=== PATIENT | female | born 1995 | race Caucasian/White ===

== ENCOUNTER 2017-10-14 22:35 | Emergency (ER) | payer BC ==
[2017-10-14] MEDS ORDERED: predniSONE 20 MG Tab PO ONE (22:36)
[2017-10-14] MEDS: diphenhydrAMINE 50 MG/ML SDV ONE (22:52)
[2017-10-14] MEDS: diphenhydrAMINE 50 MG/ML SDV IVPUSH ONE (22:52)
[2017-10-14] MEDS: EPINEPHrine 1 MG/ML SDV SUBCUT ONE (22:52)
[2017-10-14] MEDS: Albuterol/Ipratropium 3.0-0.5 MG/3 ML Neb Soln NEB ONE (22:54)
[2017-10-14] MEDS: Albuterol/Ipratropium 3.0-0.5 MG/3 ML Neb Soln ONE (22:54)
[2017-10-14] MEDS: EPINEPHrine 1 MG/ML SDV ONE (22:55)
[2017-10-14] MEDS: methylPREDNISolone Sodium Succinate 125 MG/2 ML SDV ONE (22:55)
[2017-10-14] MEDS: methylPREDNISolone Sodium Succinate 125 MG/2 ML SDV IVPUSH ONE (22:55)
[2017-10-14] MEDS: Sodium Chloride 0.9% 1,000 ML IV SCH (22:56)
[2017-10-14] MEDS: Albuterol 0.021% 0.63 MG/3 ML Neb Soln NEB ONE (22:59)
[2017-10-14 23:09] VITALS: BP 117/59
[2017-10-14] MEDS: Albuterol 0.083% 2.5 MG/3 ML Neb Soln NEB ONE (23:56)
[2017-10-14] MEDS: Famotidine 20 MG/2 ML SDV IVPUSH ONE (23:57)
--- NOTE | 2017-10-15 00:07 | EDM.PDOC ---
ED HPI GENERAL MEDICAL PROBLEM - General Chief Complaint: Allergic Reaction Stated Complaint: ALLERGIC REACTION [id number] Time Seen by Provider: 10/14/17 23:00 Source of Information: Reports: Patient History Limitations: Reports: No Limitations - History of Present Illness INITIAL COMMENTS - FREE TEXT/NARRATIVE: ED with c/o of allergic reaction to Bactrim. Started today for URI sx ongoing for past 2 weeks. Hx of similar reaction to other antibiotics in past. Notes SOB , hive on back , no difficulty swallowing. 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 Musculoskeletal History: Reports: None Neurological History: Reports: None Psychiatric History: Reports: None Endocrine/Metabolic History: Reports: None Hematologic History: Reports: None Immunologic History: Reports: None Oncologic (Cancer) History: Reports: None Dermatologic History: Reports: None - Infectious Disease History Infectious Disease History: Reports: Chicken Pox - Past Surgical History Head Surgeries/Procedures: Reports: None HEENT Surgical History: Reports: Myringotomy w Tube(s) Social & Family History - Tobacco Use Smoking Status *Q: Never Smoker Second Hand Smoke Exposure: No - Caffeine Use Caffeine Use: Reports: Coffee - Recreational Drug Use Recreational Drug Use: No ED ROS ALLERGIC REACTION - Review of Systems Review Of Systems: See Below Constitutional: Denies: Fever, Chills HEENT: Reports: Sinus Problem Respiratory: Reports: Shortness of Breath, Cough Cardiovascular: Reports: No Symptoms GI/Abdominal: Denies: Abdominal Pain, Diarrhea, Vomiting Skin: Reports: Rash, Urticaria Neurological: Reports: No Symptoms Psychiatric: Reports: Anxiety ED EXAM GENERAL NO PERIP PULSE - Physical Exam Exam: See Below Exam Limited By: No Limitations General Appearance: Alert, Anxious, Moderate Distress Eye Exam: Bilateral Eye: EOMI Ears: Normal External Exam Nose: Normal Inspection Throat/Mouth: Normal Inspection, Normal Lips, No Airway Compromise Head: Atraumatic, Normocephalic Neck: Normal Inspection, Full Range of Motion Respiratory/Chest: Decreased Breath Sounds. No: Rhonchi, Wheezing Cardiovascular: Normal Peripheral Pulses, Regular Rate, Rhythm GI/Abdominal: Normal Bowel Sounds, Soft, Non-Tender Back Exam: Normal Inspection Extremities: Normal Inspection Neurological: Alert, Oriented, Normal Cognition Skin Exam: Warm, Dry, Rash ( hives scattered mid to low back, one on face. ) Course - Vital Signs Last Recorded V/S: Last Vital Signs Temp 99 F 10/14/17 23:00 Pulse 74 10/14/17 23:00 Resp 23 H 10/14/17 23:00 BP 117/59 L 10/14/17 23:00 Pulse Ox 100 10/14/17 23:00 - Orders/Labs/Meds Orders: Active Orders 24 hr Category Date Time Status RT Aerosol Therapy [RC] ASDIRECTED Care 10/14/17 22:47 Active RT Aerosol Therapy [RC] ASDIRECTED Care 10/14/17 22:51 Active RT Aerosol Therapy [RC] ASDIRECTED Care 10/14/17 23:49 Active Meds: Medications Discontinued Medications Generic Name Dose Route Start Last Admin Trade Name Amada PRN Reason Stop Dose Admin Albuterol 0.63 mg 10/14/17 22:47 10/14/17 22:59 Proventil Neb Soln NEB 10/14/17 22:48 Not Given ONETIME ONE Albuterol 2.5 mg 10/14/17 23:48 10/14/17 23:56 Proventil Neb Soln NEB 10/14/17 23:49 2.5 mg ONETIME ONE Administration Albuterol/Ipratropium Confirm 10/14/17 22:48 10/14/17 22:54 Duoneb 3.0-0.5 Mg/3 Ml Administered 10/14/17 22:49 Not Given Dose 3 ml .ROUTE .STK-MED ONE Albuterol/Ipratropium 3 ml 10/14/17 22:51 10/14/17 22:54 Duoneb 3.0-0.5 Mg/3 Ml NEB 10/14/17 22:52 3 ml ONETIME ONE Administration Diphenhydramine HCl 25 mg 10/14/17 22:48 10/14/17 22:52 Benadryl IVPUSH 10/14/17 22:49 25 mg ONETIME ONE Administration Diphenhydramine HCl Confirm 10/14/17 22:49 10/14/17 22:52 Benadryl Administered 10/14/17 22:50 Not Given Dose 50 mg .ROUTE .STK-MED ONE Epinephrine HCl 0.3 mg 10/14/17 22:48 10/14/17 22:52 Adrenalin SUBCUT 10/14/17 22:49 0.3 mg ONETIME ONE Administration Epinephrine HCl Confirm 10/14/17 22:49 10/14/17 22:55 Adrenalin Administered 10/14/17 22:50 Not Given Dose 1 mg .ROUTE .STK-MED ONE Famotidine 20 mg 10/14/17 23:48 10/14/17 23:57 Pepcid IVPUSH 10/14/17 23:49 20 mg ONETIME ONE Administration Sodium Chloride 1,000 mls @ 999 mls/hr 10/14/17 23:00 10/14/17 22:56 Normal Saline IV 999 mls/hr ASDIRECTED RICO Administration Methylprednisolone Sodium Succinate Confirm 10/14/17 22:48 10/14/17 22:55 Solu-Medrol Administered 10/14/17 22:49 Not Given Dose 125 mg .ROUTE .STK-MED ONE Methylprednisolone Sodium Succinate 125 mg 10/14/17 22:54 10/14/17 22:55 Solu-Medrol IVPUSH 10/14/17 22:55 125 mg ONETIME ONE Administration Prednisone Confirm 10/15/17 00:26 Prednisone Administered 10/15/17 00:27 Dose 40 mg .ROUTE .STK-MED ONE - Re-Assessments/Exams Free Text/Narrative Re-Assessment/Exam: 10/15/17 04:54 Hives improved, visible, now less red, not raised. Lungs clear, No difficulty swallowing. Departure - Departure Time of Disposition: 00:01 Disposition: Home, Self-Care 01 Condition: Fair Clinical Impression: Allergic reaction caused by a drug Qualifiers: Encounter type: initial encounter Qualified Code(s): T78.40XA - Allergy, unspecified, initial encounter URI (upper respiratory infection) Qualifiers: URI type: unspecified URI Qualified Code(s): J06.9 - Acute upper respiratory infection, unspecified - Discharge Information Instructions: Anaphylactic Reaction, Adult Forms: ED Department Discharge Additional Instructions: Stop sulfa albuterol inhaler 2 puffs every 4 hours as needed for wheezing prednisone 20mg 2 in am, 1 x5day then 1/2 x 5d pepcid 20mg daily for one week benadryl 50mg every 4 hours x 24 hours then 25mg every 4 hours for 24 then every 4 as needed - My Orders Last 24 Hours: My Active Orders 10/14/17 22:47 RT Aerosol Therapy [RC] ASDIRECTED 10/14/17 22:51 RT Aerosol Therapy [RC] ASDIRECTED 10/14/17 23:49 RT Aerosol Therapy [RC] ASDIRECTED - Assessment/Plan Last 24 Hours: My Active Orders 10/14/17 22:47 RT Aerosol Therapy [RC] ASDIRECTED 10/14/17 22:51 RT Aerosol Therapy [RC] ASDIRECTED 10/14/17 23:49 RT Aerosol Therapy [RC] ASDIRECTED
[2017-10-15] MEDS ORDERED: predniSONE 20 MG Tab ONE (00:26)
== END 2017-10-15 00:39 | disposition home or self-care (01) ==
LOC: DL.ED 22:35
DX: L50.0 Allergic urticaria (principal); T37.0X5A Adverse effect of sulfonamides, initial encounter; J06.9 Acute upper respiratory infection, unspecified; Z88.0 Allergy status to penicillin; Z88.2 Allergy status to sulfonamides; Z88.1 Allergy status to other antibiotic agents
CPT/HCPCS: 71045; 96361; 96372; 96374; 96375; 99285; A9270; J0171; J1200; J2930; J7030; J7620; S0028

== ENCOUNTER 2018-02-11 19:00 | Emergency (ER) | payer BC ==
[2018-02-11 19:13] VITALS: BP 129/78
[2018-02-11] MEDS ORDERED: Ciprofloxacin 0.3% Ophth Soln 5 ML Bottle OP ONE (20:18)
--- NOTE | 2018-02-11 20:22 | EDM.PDOC ---
ED HPI GENERAL MEDICAL PROBLEM - General Chief Complaint: Eye Problems Stated Complaint: PINK EYE [id number] Time Seen by Provider: 02/11/18 20:10 Source of Information: Reports: Patient, RN, RN Notes Reviewed History Limitations: Reports: No Limitations - History of Present Illness INITIAL COMMENTS - FREE TEXT/NARRATIVE: Pt presents to the ER with c/o red right eye with green drainage. She states the eye has been red for the past 3 days, but today began with thick green discharge. She states she was exposed to pink eye this past weekend. Patient states she has had a head cold for the past 4 weeks as well. Patient denies any vision problems. Onset: Gradual Right Eye Pain Score (Numeric/FACES): 1 - Related Data Allergies Allergy/AdvReac Type Severity Reaction Status Date / Time azithromycin [From Zithromax] Allergy Anaphylactic Verified 02/11/18 19:14 Shock Cephalosporins Allergy Rash Verified 02/11/18 19:14 Macrolide Antibiotics Allergy Rash Verified 02/11/18 19:15 Penicillins Allergy Anaphylactic Verified 02/11/18 19:13 Shock sulfamethoxazole Allergy Difficulty Verified 02/11/18 19:13 [From Bactrim] Breathing trimethoprim [From Bactrim] Allergy Difficulty Verified 02/11/18 19:13 Breathing Home Meds: Home Meds . 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 Musculoskeletal History: Reports: None Neurological History: Reports: None Psychiatric History: Reports: None Endocrine/Metabolic History: Reports: None Hematologic History: Reports: None Immunologic History: Reports: None Oncologic (Cancer) History: Reports: None Dermatologic History: Reports: None - Infectious Disease History Infectious Disease History: Reports: Chicken Pox - Past Surgical History Head Surgeries/Procedures: Reports: None HEENT Surgical History: Reports: Myringotomy w Tube(s) Social & Family History - Family History Family Medical History: Noncontributory - Tobacco Use Smoking Status *Q: Never Smoker Second Hand Smoke Exposure: No - Caffeine Use Caffeine Use: Reports: None - Recreational Drug Use Recreational Drug Use: No ED ROS GENERAL - Review of Systems Review Of Systems: ROS reveals no pertinent complaints other than HPI. ED EXAM GENERAL W FULL EYE - Physical Exam Exam: See Below Exam Limited By: No Limitations General Appearance: Alert, WD/WN, No Apparent Distress Eye Exam: Right Eye: Conjunctival Injection, Bilateral Eye: EOMI With Correction: Yes Eyelids: Bilateral: Normal Appearance Conjunctiva & Sclera: Right: Discharge (Green), Injected, Left: Normal Appearance Extraocular Movements: Bilateral: Intact Pupils: Normal Accommodation Pupillary Size: Bilateral: 4 mm Pupillary Reaction: Bilateral: Brisk Ears: Normal External Exam, Hearing Grossly Normal Nose: Normal Inspection Throat/Mouth: Normal Inspection, Normal Voice, No Airway Compromise Head: Atraumatic, Normocephalic Neck: Normal Inspection, Supple, Non-Tender, Full Range of Motion Respiratory/Chest: No Respiratory Distress, Lungs Clear, Normal Breath Sounds, No Accessory Muscle Use, Chest Non-Tender Cardiovascular: Normal Peripheral Pulses, Regular Rate, Rhythm, No Edema, No Gallop, No JVD, No Murmur, No Rub GI/Abdominal: Normal Bowel Sounds, Soft, Non-Tender, No Organomegaly, No Distention, No Abnormal Bruit, No Mass (Female) Exam: Deferred Rectal (Female) Exam: Deferred Back Exam: Normal Inspection, Full Range of Motion Extremities: Normal Inspection, Normal Range of Motion, Non-Tender, Normal Capillary Refill, No Pedal Edema Neurological: Alert, Oriented, CN II-XII Intact, Normal Cognition, Normal Gait, Normal Reflexes, No Motor/Sensory Deficits Psychiatric: Normal Affect, Normal Mood Skin Exam: Warm, Dry, Intact, Normal Color, No Rash Lymphatic: No Adenopathy Course - Vital Signs Last Recorded V/S: Last Vital Signs Temp 97.6 F 02/11/18 19:05 Pulse 70 02/11/18 19:05 Resp 14 02/11/18 19:05 BP 129/78 02/11/18 19:05 Pulse Ox 100 02/11/18 19:05 - Orders/Labs/Meds Meds: Medications Discontinued Medications Generic Name Dose Route Start Last Admin Trade Name Freq PRN Reason Stop Dose Admin Ciprofloxacin 1 ml 02/11/18 20:18 02/11/18 23:08 Ciprofloxacin 0.3% Ophth Soln OP 02/11/18 20:19 Not Given ONETIME ONE - Re-Assessments/Exams Free Text/Narrative Re-Assessment/Exam: 02/12/18 00:31 Telepharmacy was contacted regarding appropriate treatment for the bacterial conjunctivitis with all of the patient's antibiotic allergies. Moxifloxicin or Ofloxacin was recommended. The patient was called regarding the change in prescription. She will rock [facility]er the new script [facility]. Patient states understanding of the change in abx. Departure - Departure Time of Disposition: 20:29 Disposition: Home, Self-Care 01 Condition: Good Clinical Impression: Conjunctivitis Qualifiers: Conjunctivitis type: acute Acute conjunctivitis type: bacterial Laterality: right Qualified Code(s): H10.31 - Unspecified acute conjunctivitis, right eye - Discharge Information Instructions: Bacterial Conjunctivitis, [id number] Referrals: PCP,None [Primary Care Provider] - Forms: ED Department Discharge Additional Instructions: Do not wear contacts until conjunctivitis is resolved RX: Erythromycin to the affected eye four times daily for 7 days.
== END 2018-02-11 20:52 | disposition home or self-care (01) ==
LOC: DL.ED 19:00
DX: H10.31 Unspecified acute conjunctivitis, right eye (principal); Z88.1 Allergy status to other antibiotic agents; Z88.0 Allergy status to penicillin; Z88.2 Allergy status to sulfonamides
CPT/HCPCS: 99282; A9270

== ENCOUNTER 2018-02-12 23:23 | Emergency (ER) | payer BC ==
[2018-02-12] MEDS ORDERED: methylPREDNISolone Sodium Succinate 125 MG/2 ML SDV IM ONE (23:31)
[2018-02-12 23:34] VITALS: BP 122/79
--- NOTE | 2018-02-12 23:36 | EDM.PDOC ---
ED HPI GENERAL MEDICAL PROBLEM - General Chief Complaint: Allergic Reaction Stated Complaint: ALLERGIC REACTION [id number] Time Seen by Provider: 02/12/18 23:32 Source of Information: Reports: Patient History Limitations: Reports: No Limitations - History of Present Illness INITIAL COMMENTS - FREE TEXT/NARRATIVE: started ofloxicin eye drops this am now face is swollen, no hives like what bactrim did. Bilateral Eye Pain Score (Numeric/FACES): 2 - Related Data Allergies Allergy/AdvReac Type Severity Reaction Status Date / Time azithromycin [From Zithromax] Allergy Anaphylactic Verified 02/11/18 19:14 Shock Cephalosporins Allergy Rash Verified 02/11/18 19:14 Macrolide Antibiotics Allergy Rash Verified 02/11/18 19:15 Penicillins Allergy Anaphylactic Verified 02/11/18 19:13 Shock sulfamethoxazole Allergy Difficulty Verified 02/11/18 19:13 [From Bactrim] Breathing trimethoprim [From Bactrim] Allergy Difficulty Verified 02/11/18 19:13 Breathing Home Meds: Home Meds Ofloxacin [Ocuflox 0.3% Ophth Soln] 1 drop EYEBOTH DAILY 02/12/18 [History] Past Medical History - Past Health History Medical/Surgical History: Denies Medical/Surgical History HEENT History: Reports: Impaired Vision Other HEENT History: wears contacts Cardiovascular History: Reports: None Respiratory History: Reports: None Gastrointestinal History: Reports: None Genitourinary History: Reports: None 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 Musculoskeletal History: Reports: None Neurological History: Reports: None Psychiatric History: Reports: None Endocrine/Metabolic History: Reports: None Hematologic History: Reports: None Immunologic History: Reports: None Oncologic (Cancer) History: Reports: None Dermatologic History: Reports: None - Infectious Disease History Infectious Disease History: Reports: Chicken Pox - Past Surgical History Head Surgeries/Procedures: Reports: None HEENT Surgical History: Reports: Myringotomy w Tube(s) Social & Family History - Family History Family Medical History: Noncontributory - Caffeine Use Caffeine Use: Reports: None ED ROS ALLERGIC REACTION - Review of Systems Review Of Systems: ROS reveals no pertinent complaints other than HPI. ED EXAM GENERAL NO PERIP PULSE - Physical Exam Exam: See Below Exam Limited By: No Limitations General Appearance: Alert, WD/WN, Mild Distress, Other (discomfort) Ears: Hearing Grossly Normal Throat/Mouth: Normal Inspection, Normal Voice, No Airway Compromise Head: Atraumatic, Other (minimal facial swelling) Neck: Non-Tender, Full Range of Motion Respiratory/Chest: No Respiratory Distress, Lungs Clear, Normal Breath Sounds Cardiovascular: Regular Rate, Rhythm GI/Abdominal: Soft, Non-Tender Neurological: Alert, Oriented, Normal Cognition, Normal Gait, No Motor/Sensory Deficits Psychiatric: Normal Affect, Normal Mood Skin Exam: No Rash Lymphatic: No Adenopathy Course - Vital Signs Last Recorded V/S: Last Vital Signs Temp 36.8 C 02/12/18 23:27 Pulse 71 02/12/18 23:27 Resp 18 02/12/18 23:27 BP 122/79 02/12/18 23:27 Pulse Ox 100 02/12/18 23:27 - Orders/Labs/Meds Meds: Medications Discontinued Medications Generic Name Dose Route Start Last Admin Trade Name Freq PRN Reason Stop Dose Admin Methylprednisolone Sodium Succinate 125 mg 02/12/18 23:31 02/12/18 23:40 Solu-Medrol IM 02/12/18 23:32 125 mg ONETIME ONE Administration Departure - Departure Time of Disposition: 23:40 Disposition: Home, Self-Care 01 Condition: Good Clinical Impression: Allergic reaction caused by a drug Qualifiers: Encounter type: initial encounter Qualified Code(s): T78.40XA - Allergy, unspecified, initial encounter - Discharge Information Instructions: Allergies, Adult, [id number] Referrals: PCP,None [Primary Care Provider] - Forms: ED Department Discharge Additional Instructions: 1) don't use the eye drops 2) see eye clinic tomorrow rx given; medrol dospak
== END 2018-02-12 23:44 | disposition home or self-care (01) ==
LOC: DL.ED 23:23
DX: R22.0 Localized swelling, mass and lump, head (principal); T49.5X5A Adverse effect of ophthalmological drugs and preparations, initial encounter; Z88.1 Allergy status to other antibiotic agents; Z88.0 Allergy status to penicillin; Z88.2 Allergy status to sulfonamides; Z88.8 Allergy status to other drugs, medicaments and biological substances
CPT/HCPCS: 96372; 99283; J2930